=== PATIENT | female | born 1975 ===

== ENCOUNTER 2021-01-03 07:50 | Day surgery (SDC) | payer SELFPAY ==
[~2021-01-03] VITALS: Ht 175.3 cm; Wt 73.3 kg
[~2021-01-03 07:50] MED LIST: ACET500 PO
--- NOTE | 2021-01-03 11:29 | NUR ---
01/03/21 1129 SITA FRANCISCO PT IN RECLINER AT 2699
== END 2021-01-03 12:10 | disposition home or self-care (01) ==
LOC: ORSCSDS 07:50
PROVIDERS: Orthopaedic Surgery
PROC: 0MQP4ZZ Repair Left Knee Bursa and Ligament, Percutaneous Endoscopic Approach (ICD-10-PCS; principal; 2021-01-03 09:00)
PROC: 0SQD4ZZ Repair Left Knee Joint, Percutaneous Endoscopic Approach (ICD-10-PCS; principal; 2021-01-03 09:00)
DX: S83.512A Sprain of anterior cruciate ligament of left knee, initial encounter (principal); S83.242A Other tear of medial meniscus, current injury, left knee, initial encounter
CPT/HCPCS: A9270; C1713; J0171; J0690; J1100; J1885; J2250; J2405; J2704; J2795; J3010; J7120